=== PATIENT | female | born 1985 | race Caucasian/White ===

== ENCOUNTER 2018-01-06 22:04 | Emergency (ER) | payer OTHER ==
[~2018-01-06] VITALS: Ht 165.1 cm; Wt 52.2 kg
[2018-01-06 23:27] LABS: APPEARANCE,URINE CLEAR (CLEAR); BILIRUBIN,URINE NEGATIVE (NEGATIVE); BLOOD, URINE 1+ Ery/uL (NEGATIVE); COLOR,URINE OTHER (YELLOW); KETONES,URINE NEGATIVE (NEGATIVE); LEUKOCYTE ESTERASE ,URINE 1+ (NEGATIVE); NITRITE, URINE NEGATIVE (NEGATIVE); PROTEIN,URINE NEGATIVE (NEGATIVE); UGLUCOSE NEGATIVE (NEGATIVE); UROBILINOGEN,URINE 0.2 EU/dL (0.2)
--- NOTE | 2018-01-06 23:29 | NUR ---
PT IS C/O ABD PAIN. PT AMBULATED TO BED #13. PT WAS SEEN BY DR. WU.
[2018-01-06 23:37] LABS: BACTERIA,URINE Few /HPF (None Seen); RBC,URINE 0-2 /HPF (0-2); SQUAMOUS EPITHELIAL CELL,UR Few /HPF (None Seen)
[2018-01-07 00:04] LABS: BASOPHILS % (AUTO) 0.3 % (0.0-2.0); HEMATOCRIT 34 % (33-45); HEMOGLOBIN 11.7 g/dL (11.5-14.8); LYMPHOCYTES # (AUTO) 2.3 /CMM (0.8-4.8); LYMPHOCYTES % (AUTO) 34.5 % (20.0-44.0); MEAN CORPUSCULAR HGB CONC 35 g/dl (31.0-36.0); MEAN CORPUSCULAR VOLUME 93 fL (82-100); MONOCYTES # (AUTO) 0.8 /CMM (0.1-1.30); MONOCYTES % (AUTO) 11.5 % (2.0-12.0); NEUTROPHILS # (AUTO) 3.5 /CMM (1.8-8.9); NEUTROPHILS % (AUTO) 52.7 % (43.0-81.0); PLATELET COUNT (AUTO) 225 /CMM (150-450); RED BLOOD CELL COUNT(AUTO) 3.61 MIL/uL (4.0-5.2); WHITE BLOOD COUNT (AUTO) 6.6 K/uL (4.3-11.0)
[2018-01-07 00:20] LABS: ALBUMIN 3.4 g/dL (3.4-5.0); BILIRUBIN,DIRECT 0.1 mg/dL (0.0-0.2); BILIRUBIN,TOTAL 0.5 mg/dL (0.2-1.0); CALCIUM, SERUM 8.9 mg/dL (8.5-10.1); CREATININE 0.7 mg/dL (0.6-1.3); POTASSIUM 3.7 mmol/L (3.5-5.1); TOTAL PROTEIN, SERUM 6.4 g/dL (6.4-8.2)
--- NOTE | 2018-01-07 00:30 | NUR ---
PELVIC EXAM DONE BY DR. WU. Female hospice office coordinator accompanied female patient for DR. WU.
[2018-01-07] MEDS ORDERED: KETOROLAC TROMETHAMINE INJ 30 MG/ML VIAL ONE (00:48)
[2018-01-07] MEDS ORDERED: CIPROFLOXACIN HCL 500 MG TABLET ONE (00:54)
[2018-01-07] MEDS ORDERED: CIPROFLOXACIN HCL 500 MG TABLET PO ONE (01:00)
[2018-01-07] MEDS ORDERED: KETOROLAC TROMETHAMINE INJ 60 MG/2 ML VIAL IM ONE (01:00)
[2018-01-07 01:18] VITALS: BP 119/78
== END 2018-01-07 01:19 | disposition home or self-care (01) ==
LOC: ER 22:10
DX: N39.0 Urinary tract infection, site not specified (principal); B37.3 Candidiasis of vulva and vagina
CPT/HCPCS: 36415; 80048; 80076; 81001; 83690; 84703; 85025; 87077; 87086; 87110; 87186; 87210; 96372; 99284; A4606; J1885; Z7610; 81000-TC

== ENCOUNTER 2018-12-04 15:05 | Emergency (ER) | payer OTHER ==
[~2018-12-04] VITALS: Ht 165.1 cm; Wt 56.2 kg
[2018-12-04 15:20] VITALS: BP 119/73
[2018-12-04] MEDS ORDERED: KETOROLAC TROMETHAMINE INJ 60 MG/2 ML VIAL IM ONE (16:00)
[2018-12-04] MEDS ORDERED: DIAZEPAM 5 MG TABLET PO ONE (16:00)
[2018-12-04] MEDS ORDERED: DIAZEPAM 5 MG TABLET ONE (16:40)
[2018-12-04] MEDS ORDERED: KETOROLAC TROMETHAMINE INJ 30 MG/ML VIAL ONE (16:40)
--- NOTE | 2018-12-04 17:40 | NUR ---
Patient stated she feels better, able to move a little more. Rx provided, patient discharged to home in stable condition. Written and verbal after care instructions given. Patient verbalizes understanding of instruction.
== END 2018-12-04 17:45 | disposition home or self-care (01) ==
LOC: ER 15:05
DX: M62.838 Other muscle spasm (principal); Z87.442 Personal history of urinary calculi
CPT/HCPCS: 72050; 96372; 99283; J1885

== ENCOUNTER 2020-01-12 08:59 | Emergency (ER) | payer OTHER ==
[~2020-01-12] VITALS: Ht 165.1 cm; Wt 56.7 kg
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
--- NOTE | 2020-01-12 09:05 | NUR ---
AT BEDSIDE FOR EVAL.
--- NOTE | 2020-01-12 09:06 | NUR ---
PT SIGNED WAIVER STATING SHE IS NOT CAN PROCEED WITH XRAY/CT SCAN.
--- NOTE | 2020-01-12 09:24 | NUR ---
URINE SPECIMEN COLLECTED AND SENT TO LAB.
[2020-01-12] MEDS ORDERED: MORPHINE SULFATE INJ 4 MG/ML DISP.SYRIN ONE (09:42)
--- NOTE | 2020-01-12 09:51 | NUR ---
PROMOTIONS INTERN AT BEDSIDE FOR XRAY.
[2020-01-12] MEDS ORDERED: MORPHINE SULFATE INJ 2 MG/ML DISP.SYRIN IM ONE (10:00)
--- NOTE | 2020-01-12 10:20 | NUR ---
PT IS BACK FROM THE CT SCAN.
[2020-01-12] MEDS ORDERED: HYDROCODONE/APAP 5/325MG 1 EACH TABLET ONE (10:58)
[2020-01-12] MEDS ORDERED: IBUPROFEN 600 MG TABLET PO ONE ×2 (10:58→11:00)
[2020-01-12] MEDS ORDERED: HYDROCODONE/APAP 5/325MG 1 EACH TABLET PO ONE (11:00)
[2020-01-12 11:09] VITALS: BP 117/77
--- NOTE | 2020-01-12 11:09 | NUR ---
Patient discharged to home in stable condition. Written and verbal after care instructions given. Patient verbalizes understanding of instruction.
== END 2020-01-12 11:09 | disposition home or self-care (01) ==
LOC: ER 09:02
DX: S16.1XXA Strain of muscle, fascia and tendon at neck level, initial encounter (principal); S23.3XXA Sprain of ligaments of thoracic spine, initial encounter; V32.5XXA Driver of three-wheeled motor vehicle injured in collision with two- or three-wheeled motor vehicle in traffic accident, initial encounter; Y93.89 Activity, other specified; Y92.413 State road as the place of occurrence of the external cause; Y99.8 Other external cause status
CPT/HCPCS: 71045; 72125; 72128; 84703; 96372; 99285; J2270